=== PATIENT | male | born 1990 | race Hispanic/Latino ===

== ENCOUNTER 2022-05-23 18:17 | Emergency (ER) | payer SELFPAY ==
[~2022-05-23] VITALS: Ht 172.7 cm; Wt 74.8 kg
[2022-05-23] MEDS ORDERED: FLUORESCEIN SOD(OPTH) 1 MG STRP OP ONE (19:15)
[2022-05-23] MEDS ORDERED: TETRACAINE HCL 0.5% OPTH SOLN 4 ML BTL ONE ×2 (19:28→19:31)
[2022-05-23] MEDS ORDERED: EYE IRRIGATION (OPTH) 120 ML BTL ONE (19:29)
[2022-05-23] MEDS ORDERED: FLUORESCEIN SOD(OPTH) 1 MG STRP ONE (19:32)
[2022-05-23] MEDS ORDERED: OFLOXACIN5 ML OT (19:34)
[2022-05-23] MEDS ORDERED: PREDNISONE10 MG PO (19:36)
[2022-05-23] MEDS ORDERED: PROPARACAINE HCL 0.5% OP SOLN 15 ML BTL OP ONE (19:45)
== END 2022-05-23 19:51 | disposition home or self-care (01) ==
LOC: ER 19:15
DX: H18.821 Corneal disorder due to contact lens, right eye (principal); T15.81XA Foreign body in other and multiple parts of external eye, right eye, initial encounter; H10.9 Unspecified conjunctivitis
CPT/HCPCS: 99283